=== PATIENT | female | born 1985 | race Caucasian/White ===

== ENCOUNTER 2019-05-25 04:28 | Emergency (ER) | payer OTHER, MEDICAID ==
--- NOTE | 2019-05-25 04:39 | ED Physician Documentation ---
History of Present Illness - Stated complaint Stated Complaint: COUGHING - History obtained from History obtained from: Patient - History of Present Illness Timing: How many days ago (5) Pain level now: 0 - Additonal information Additional information: c/o productive cough x 5 days, sore throat, sinus congestion and rhinorrhea. here with her son who is also registered as ED patient (for croup). patient is currently Review of Systems Constitutional: denies: Fever, Chills, Myalgias, Sweats Ears: denies: Ear pain Nose: reports: Rhinorrhea / runny nose, Congestion Throat: reports: Sore throat Cardiac: reports: Reviewed and negative Respiratory: reports: Cough. denies: Dyspnea, Wheezing PD PAST MEDICAL HISTORY - Past Medical History Past Medical History: Yes Endocrine/Autoimmune: HyPOthyroidism : Kidney stones - Past Surgical History Past Surgical History: Yes - Present Medications Home Medications: Ambulatory Orders Medication Instructions Recorded Confirmed Levothyroxine [Synthroid] 50 mcg PO QDAC 08/06/15 08/06/15 Ondansetron Odt [Zofran] 4 mg TL Q6H PRN #10 tablet 12/14/15 Oxycodone HCl/Acetaminophen 1 - 2 each PO Q6H PRN #10 tablet 12/14/15 [Percocet 5-325 mg Tablet] Hydrocodone/Acetaminophen [[place] 1 each PO Q6H PRN #20 tablet 08/16/16 5-325 Tablet] Naproxen 375 mg PO BID #20 tablet 08/16/16 Ondansetron Odt [Zofran] 4 mg TL Q6H PRN #15 tablet 08/16/16 guaiFENesin/CODEINE [Robitussin AC] 5 ml PO Q6H PRN #60 udc 05/25/19 - Allergies Allergies/Adverse Reactions: Allergies Allergy/AdvReac Type Severity Reaction Status Date / Time No Known Drug Allergies Allergy Verified 05/25/19 04:54 - Social History Does the pt smoke?: No Smoking Status: Never smoker Does the pt drink ETOH?: No Does the pt have substance abuse?: No - Immunizations Immunizations are current?: Yes - POLST Patient has POLST: No PD ED PE NORMAL - Vitals Vital signs reviewed: Yes - General General: Alert and oriented X 3, No acute distress, Well developed/nourished - HEENT HEENT: Moist mucous membranes, Pharynx benign - Neck Neck: Supple, no meningeal sign - Cardiac Cardiac: RRR, No murmur - Respiratory Respiratory: No respiratory distress, Clear bilaterally Results - Vitals Vitals: Oxygen O2 Source Room air PD MEDICAL DECISION MAKING - ED course Complexity details: considered differential, d/w patient ED course: NAD with H+P most suggestive of viral URI. Departure - Departure Disposition: Home, Self Care Clinical Impression: Upper respiratory tract infection Qualifiers: URI type: unspecified URI Qualified Code(s): J06.9 - Acute upper respiratory infection, unspecified Condition: Good Instructions: ED Upper Resp Infec No Abx Tx Prescriptions: guaiFENesin/CODEINE [Robitussin AC] 5 ml PO Q6H PRN #60 udc PRN Reason: Cough Discharge Date/Time: 05/25/19 05:44
[2019-05-25 04:54] VITALS: BP 124/72
== END 2019-05-25 05:44 | disposition home or self-care (01) ==
LOC: ED 04:28
DX: J06.9 Acute upper respiratory infection, unspecified (principal)
CPT/HCPCS: 99281; 99284

== ENCOUNTER 2019-06-14 17:14 | Outpatient (CLI) | payer OTHER, MEDICAID ==
[2019-06-14 17:47] LABS: BILIRUBIN,URINE NEGATIVE (NEGATIVE); GLUCOSE, URINE (UA) NEGATIVE (NEGATIVE); KETONES,URINE (UA) NEGATIVE (NEGATIVE); LEUKOCYTE ESTERASE, URINE NEGATIVE (NEGATIVE); NITRITE,URINE NEGATIVE (NEGATIVE); OCCULT BLOOD,URINE NEGATIVE (NEGATIVE); PROTEIN,URINE NEGATIVE (NEGATIVE); UROBILINOGEN,URINE 0.2 (NORMAL) E.U./dL (NORMAL)
[2019-06-14 17:48] LABS: CLARITY,URINE CLEAR (CLEAR)
[2019-06-14 18:00] VITALS: BP 122/67
[2019-06-14] MEDS ORDERED: TERBUTALINE 1 MG/ML VIAL SUBQ ONE (18:06)
[2019-06-14] MEDS ORDERED: TERBUTALINE 2.5 MG TABLET PO ONE ×2 (18:57→19:03)
--- NOTE | 2019-06-14 20:02 | HISTORY & PHYSICAL EXAMINATION ---
DATE OF SERVICE: 06/14/2019 Physician: Devyn Rdz MD IDENTIFICATION: The patient is a 33-year-old G3, P2 female whose EDC is 10/06/2019. This is confirmed with last menstrual period as well as ultrasound at 8 weeks, EGA. She is status post myomectomy. CHIEF COMPLAINT: Cramping. HISTORY OF PRESENT ILLNESS: Patient states that this morning, she developed cramping, which became more regular at about 1:30. She states she tried lying down and taking a bath, and this did not seem to help her. She states that this pain is better with voiding. She denies any pain or burning on urination. She has a distant history of bladder infections as well as kidney stones. She is 2 years status post myomectomy for an 8 cm fibroid. She was informed that she needs to have all of her children via . She has been followed by MFM at [place], as well as transvaginal ultrasounds checking her cervical length. She states her last cervical length was 3.5 cm. She has had 2 previous vaginal deliveries without difficulty. Both of them were term; however, one was complicated with labor requiring magnesium sulfate and terbutaline at 33 weeks and delivered at 37 weeks. PAST MEDICAL HISTORY: Positive for Regan thyroiditis. She also has a history of kidney stones, as well as back pain, asthma and migraines. SURGICAL HISTORY: PE tubes as a child, myomectomy at 31 years of age. CURRENT MEDICATIONS 1. Albuterol. 2. Famotidine. 3. Imitrex. 4. Levothyroxine 50 mcg. 5. vitamins. 6. Zantac. 7. Tums. ALLERGIES: NONE KNOWN. HABITS: Patient stopped smoking and denies the use of alcohol, street or addictive drugs. 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 OB HISTORY: Positive for 2 spontaneous vaginal deliveries, both of which were complicated with contractions, one at 33 weeks requiring magnesium sulfate as well as terbutaline. They both delivered greater than 37 weeks. PHYSICAL EXAMINATION GENERAL: Patient is a well-developed, well-nourished female. She is in no acute distress at this time. VITAL SIGNS: Temperature is 36.9, heart rate 91, blood pressure 122/67, respirations 16. She is satting 100% on room air. HEENT: Pupils are equal, round. Extraocular muscles are intact. NECK: Thyroid is not palpably enlarged. HEART: Regular rate and rhythm without murmurs. LUNGS: Lung simms are clear without rales or wheezes. BACK: No spinal or CVA tenderness noted. /PELVIS: Uterus was noted to be roughly 23 cm. There is some mild tenderness over the fundal area where she has previously had her myomectomy. She is noted to have a good heart rate. External monitoring was unable to mixing picker tender any contractions at this time; however, she states she is sensing them. LABS: Urinalysis performed showed urine which was clear, specific gravity is 1.005, leukocyte esterase negative. It is not indicated for urinalysis at this time. IMPRESSION 1. A 33-year-old, G3, P2 at 23 weeks 5 days. 2. contractions. 3. Previous myomectomy. PLAN: Patient was administered terbutaline 0.25 subcutaneously. We will obtain ultrasound to check cervical length. At this point, as long as contractions settle down, we will allow her to go home. We will send her home with 2.5 mg of terbutaline she may take every 6 hours as needed for contractions. [place] as her Maternal- Medicine doctor in [place], [place]. TD: 06/14/2019 18:55 MTDD
== END 2019-06-14 19:23 | disposition home or self-care (01) ==
LOC: WFO 17:14 → FBP 17:17 → WFO 19:23
PROVIDERS: ATTEND Obstetrics & Gynecology
DX: O09.212 Supervision of pregnancy with history of pre-term labor, second trimester (principal); O34.29 Maternal care due to uterine scar from other previous surgery; O99.282 Endocrine, nutritional and metabolic diseases complicating pregnancy, second trimester; E06.3 Autoimmune thyroiditis; Z3A.23 23 weeks gestation of pregnancy; Z87.440 Personal history of urinary (tract) infections; Z87.442 Personal history of urinary calculi; Z86.018 Personal history of other benign neoplasm; Z79.899 Other long term (current) drug therapy
CPT/HCPCS: 81003; 96372; 99213; A9270; 81001; 87086